=== PATIENT | female | born 1965 | race Caucasian/White ===

== ENCOUNTER → 2017-07-04 | Outpatient (CLI) | payer OTHER ==
--- NOTE | 2017-07-04 14:17 | DIREP ---
PROCEDURE:MRI UPPER EXTREM JOINT W O CON LEFT COMPARISON:None. INDICATIONS:M25.512 PAIN IN LEFT SHOULDER TECHNIQUE:A variety of imaging planes and parameters were utilized for visualization of suspected pathology. Images were performed without contrast. FINDINGS: Supraspinatus tendinosis with partial-thickness bursal surface tearing of the mid to posterior fibers involving greater than 50% of the tendon thickness. This measures approximately 1 cm in the AP dimension. The infraspinatus and teres minor tendons appear intact. The subscapularis tendon appears intact. The intra-articular segment long head biceps tendon appears intact. The biceps tendon is appropriately located within the bicipital groove distally. The rotator cuff and deltoid musculature demonstrate age appropriate signal and volume. No focal rotator cuff muscle atrophy or edema. No suspicious bone marrow edema to suggest fracture. 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 The acromioclavicular and glenohumeral joints appear intact. Minimal acromioclavicular joint osteoarthrosis. The coracoclavicular ligament appears intact. Mild glenohumeral joint osteoarthrosis. Irregularity of the superior labrum may reflect degeneration and tearing. Evaluation is limited by non arthrographic technique. No significant glenohumeral joint effusion. Trace fluid within the subacromial subdeltoid bursa. CONCLUSION: 1. Partial-thickness bursal surface tearing of the supraspinatus tendon superimposed on supraspinatus tendinosis as discussed above. Remainder of the rotator cuff appears intact. No associated rotator cuff muscle atrophy or edema. 2. Minimal acromioclavicular joint osteoarthrosis with mild degenerative changes of the glenohumeral joint. Suspect superior labral degeneration and tearing. 3. Trace fluid within the subacromial subdeltoid bursa may reflect subtle bursitis. Dictated by: Jordy Read M.D. On 07/04/2017 at 02:05 PM
--- NOTE | 2017-07-05 08:41 | DIREP ---
PROCEDURE:MR WRIST WITHOUT CONTRAST [Left] TECHNIQUE:Multi-planar MR images of the left wrist were obtained without contrast. COMPARISON:[facility], MR, MRI JOINT UPPER EXTREMITY-LT W/O, 07/04/2017, 10:07 AM. LEIDY Chau, WRIST 3 VIEW LEFT, 06/23/2017, 09:28 AM. INDICATIONS:M25.532 PAIN IN LEFT WRIST FINDINGS: TENDONS:Moderate thickening and interstitial edema involving the 1st extensor compartment tendons (extensor pollicis brevis and abductor pollicis longus tendons). The remainder of the extensor tendons demonstrate normal signal and morphology. The flexor tendons demonstrate normal signal and morphology. Median nerve demonstrates no evidence of enlargement or edema. BONES:Marrow signal is age appropriate. No fracture or suspicious lesion. JOINTS:Small radiocarpal joint effusion. SOFT TISSUES:Interstitial edema surrounding the 1st extensor compartment. LIGAMENTS:Full-thickness perforation involving the TFC ligament near the radial insertion. The volar and dorsal radioulnar ligaments appear intact. The foveal and styloid insertions appear intact. Meniscal homolog is unremarkable. Scapholunate and lunotriquetral ligaments are intact. OTHER:Negative. CONCLUSION: 1. First extensor compartment tendinosis and tenosynovitis (deQuervain's tenosynovitis). 2. Full-thickness radial sided TFC perforation. Dictated by: Kt Peterson M.D. on 07/05/2017 at 08:29 AM
== END | disposition home or self-care (01) ==
LOC: MRI 08:33
PROVIDERS: ATTEND Nurse Practitioner Family
DX: S46.012A Strain of muscle(s) and tendon(s) of the rotator cuff of left shoulder, initial encounter (principal); M19.012 Primary osteoarthritis, left shoulder; M77.9 Enthesopathy, unspecified; X58.XXXA Exposure to other specified factors, initial encounter; Y93.89 Activity, other specified; Y92.89 Other specified places as the place of occurrence of the external cause; Y99.8 Other external cause status
CPT/HCPCS: 73221